=== PATIENT | female | born 1990 | race Caucasian/White ===

== ENCOUNTER 2017-09-13 22:33 | Emergency (ER) | payer MEDICAID ==
[2017-09-13] MEDS ORDERED: Albuterol/Ipratropium Neb 3 ML AERS HHN ONE ×3 (22:47)
--- NOTE | 2017-09-13 23:00 | ED Physician Chart ---
ED Chief Complaint/HPI - Patient Information Date Seen:: 09/13/17 Time Seen:: 22:40 Chief Complaint:: Asthma attack History of Present Illness:: 27 yo female had asthma attack and cough for 30 minutes. Prior to asthma, she felt mild fever and chills. She had not taken albuterol inhaler for 1 month. She had one breathing treatment at home and second treatment on route to ER in the ambulance. Allergies:: Allergies Allergy/AdvReac Type Severity Reaction Status Date / Time shrimp Allergy Verified 09/13/17 22:42 Vitals:: Vital Signs - 8 hr 09/13/17 22:34 Temp 97.5 F HR 79 RR 24 BP 136/74 O2 Sat % 100 ED Review of Systems - Review of Systems General/Constitutional: Fever, Chills Skin: No bruising Head: No headache Eyes: No pain ENT: No nasal drainage Neck: No neck pain Cardio Vascular: No chest pain Pulmonary: SOB, Wheezing GI: No nausea, No vomiting G/U: No dysuria Musculoskeletal: No bone or joint pain ED Past Medical History - Past Medical History Past Medical History: Asthma/COPD, Other () Social History: Non Smoker, Alcohol, No Drug Use Surgical History: None Family Medical History - Family Member Mother History Unknown: Yes Ethnicity: Hx Family Cancer: No Hx Family Coronary Artery Disease: No Hx Family Congestive Heart Failure: No Hx Family Hypertension: No Hx Family Stroke: No ED Physical Exam - Physical Examination General/Constitutional: Awake, Alert Head: Atraumatic Eyes: PERRL, EOMI Skin: No ecchymosis ENMT: Nasal exam nl Neck: No nuchal rigidity Other Respiratory comments:: Wheezing Cardio Vascular: RRR, No murmur, gallop, rubs, NL S1 S2 GI: No tenderness/rebounding/guarding Extremities: normal strength in all extremities Neuro/Psych: Alert/oriented, No focal deficits ED Labs/Radiology/EKG Results - Radiology Results Results: CXR: no consolidation ED Assessment - Assessment General Assessment: Mild intermittent asthma with asthma attack UTI Hypokalemia Critical Care Time: 30 min Excludes all billable procedures: Yes This condition life threatening/high prob of deterioration: No Assessment/Comments:: CBC, CMP, UTI DuoNeb Methylpredinisonolone 80mg IV once Rocephin 1g IV NS 1L bolus KCL 20mEq D/c home Albuterol Advir Ciprofloxacin F/u PCP or return to ER if symptoms worsen ED Septic Shock - . Is Septic Shock (SBP<90, OR Lactate>4 mmol\L) present?: No - <6hrs of presentation: Vital Signs: Vital Signs - 8 hr 09/13/17 22:34 Temp 97.5 F HR 79 RR 24 BP 136/74 O2 Sat % 100 ED Reassessment (Disposition) - Reassessment Reassessment Condition:: Improved - Aftercare/Follow up Instructions Aftercare/Follow-Up Instructions:: Counseled pt regarding lab results/diagnosis & need follow up, Refer to Discharge Instructions - Patient Disposition Discharge/Transfer:: Home ED Discharge Plan - Patient Disposition Admit/Discharge/Transfer: PT DISCHARGED HOME Condition at Disposition: Improved Prescriptions: Albuterol Sulfate [Proair Respiclick] 2 puff IH PRN PRN #1 [email or web address] PRN Reason: Shortness Of Breath Ciprofloxacin [Cipro] 500 mg PO BID #14 tab Fluticasone/Salmeterol [Advair 100-50 Diskus] 1 puff IH DAILY #1 dsk Instructions: Urinary Tract Infection, [id number], Asthma, Adult, Easy-to- Read Additional Instructions: take medication as prescribed. follow up with primary doctor in morning
[2017-09-13] MEDS ORDERED: methylPREDNISolone SS 40 mg Vial ONE (23:03)
[2017-09-13 23:11] LABS: % BASOPHILS 0.5 % (0.0-2.0); % EOSINOPHILS 8.3 % (0.0-5.0); % LYMPHOCYTES 32.5 % (20.0-50.0); % MONOCYTES 3.8 % (2.0-10.0); % NEUTROPHILS 54.9 % (40.0-80.0); BASOPHILE ABSOLUTE 0.1 Th/cumm (0-0.2); EOSINOPHILE ABSOLUTE 1.1 Th/cmm (0.1-0.4); HEMATOCRIT 34.5 % (41.0-60); HEMOGLOBIN 11.2 gm/dL (12-16); LYMPHOCYTE ABSOLUTE 4.3 Th/cmm (1.5-3.0); MEAN CELL VOLUME 74.3 fl (81-100); MEAN CORPUSCULAR HEMOGLOBIN 24.1 pg (27.0-31.0); MEAN CORPUSCULAR HGB CONC 32.5 pg (28.0-36.0); MEAN PLATELET VOLUME 7.7 fl; MONOCYTE ABSOLUTE 0.5 Th/cmm (0.3-1.0); NEUTROPHILE ABSOLUTE 7.3 Th/cmm (1.8-8.0); PLATELET COUNT 454 Th/cmm (150-400); RED BLOOD COUNT 4.65 Mil/cmm (3.80-5.10); RED CELL DISTRIBUTION WIDTH 16.3 % (11.5-20.0)
[2017-09-13 23:13] LABS: WHITE BLOOD COUNT 13.3 Th/cmm (4.8-10.8)
[2017-09-13 23:19] LABS: URINE MICROSCOPIC INDICATED? YES; URINE SOURCE RANDOM
[2017-09-13 23:22] LABS: URINE BILIRUBIN NEGATIVE (NEGATIVE); URINE BLOOD NEGATIVE (NEGATIVE); URINE GLUCOSE (UA) NEGATIVE (NEGATIVE); URINE KETONE NEGATIVE (NEGATIVE); URINE LEUKOCYTE ESTERASE NEGATIVE (NEGATIVE); URINE NITRATE POSITIVE (NEGATIVE); URINE PROTEIN TRACE mg/dL (NEGATIVE); URINE UROBILINOGEN 0.2 E.U./dL (0.2 - 1.0)
[2017-09-13 23:25] LABS: URINE CLARITY HAZY (CLEAR); URINE COLOR YELLOW
[2017-09-13 23:28] LABS: ALB/GLOB RATIO 1.4 (1.0-1.8); ALBUMIN 4.1 gm/dL (3.7-5.3); ALKALINE PHOSPHATASE 124 U/L (34-104); ANION GAP 9.6 (7.0-16.0); BILIRUBIN,TOTAL 0.3 mg/dL (0.3-1.0); BUN - UREA NITROGEN 7 mg/dL (7-25); CARBON DIOXIDE 23.7 mEq/L (21.0-31.0); CHLORIDE 105 mEq/L (98-107); CREATININE - SERUM 0.6 mg/dL (0.6-1.2); GFR AFRICAN-AMERICAN > 60.0 ml/min (>90); GFR NON AFRICAN-AMERICAN > 60.0 ml/min; GLUCOSE 159 mg/dL (70-105); POTASSIUM SERUM 3.3 mEq/L (3.5-5.1); SGOT 18 U/L (13-39); SGPT/ALT 19 U/L (7-52); SODIUM SERUM 135 mEq/L (136-145); TOTAL PROTEIN,SERUM 7.1 gm/dL (6.0-8.3)
[2017-09-13 23:35] LABS: URINE BACTERIA MANY /hpf (NONE SEEN); URINE EPITHELIAL CELLS MANY /lpf (FEW); URINE RBC 0-2 /hpf (0-5)
[2017-09-13] MEDS ORDERED: Sodium Chloride 0.9% 1,000 ML IV ONE (23:56)
[2017-09-13] MEDS ORDERED: Potassium Chloride 20 mEq ER Tab PO ONE (23:57)
[2017-09-13] MEDS ORDERED: cefTRIAXone 1 GM in Sodium Chloride 0.9% 50 ML IV ONE (23:57)
[2017-09-14] MEDS ORDERED: Potassium Chloride 20 mEq ER Tab PO ONE (00:02)
--- NOTE | 2017-09-14 09:12 | Diagnostic Imaging Report ---
Exam: Portable chest x-ray. HISTORY: Wheezing. Findings: Portable upright examination of chest at 2341 hours reviewed no prior studies available comparison. Bony thorax is intact. Mediastinal structures midline the heart is not enlarged costophrenic angles are clear. Mild atelectatic changes are noted the bases. IMPRESSION: mild basilar atelectasis.
== END 2017-09-14 00:45 | disposition home or self-care (01) ==
LOC: ER 22:33
DX: J45.909 Unspecified asthma, uncomplicated (principal); N39.0 Urinary tract infection, site not specified; E87.6 Hypokalemia; J44.9 Chronic obstructive pulmonary disease, unspecified; Z91.013 Allergy to seafood
CPT/HCPCS: 99285; 96365; 96375; 94640 ×2; 71010; 36415; 83605; 85025; 87086; 81001; 81025; 80053; 87040; J0696; J2920; J7030; Z7502